=== PATIENT | male | born 1990 ===

== ENCOUNTER 2021-06-27 15:20 | Emergency (ER) | payer OTHER ==
[~2021-06-27] VITALS: Ht 175.3 cm; Wt 81.6 kg
[2021-06-27 15:38] VITALS: BP 138/99
[2021-06-27] MEDS ORDERED: CYCL-837 PO (17:08)
[2021-06-27] MEDS ORDERED: IBUP800T27 PO (17:08)
[2021-06-27] MEDS ORDERED: CEPH-509 PO (17:08)
== END 2021-06-27 17:39 | disposition home or self-care (01) ==
LOC: ER 15:20
DX: S22.31XA Fracture of one rib, right side, initial encounter for closed fracture (principal); S62.622A Displaced fracture of middle phalanx of right middle finger, initial encounter for closed fracture; Z79.1 Long term (current) use of non-steroidal anti-inflammatories (NSAID); Z79.899 Other long term (current) drug therapy; W18.39XA Other fall on same level, initial encounter; Y93.89 Activity, other specified; Y92.89 Other specified places as the place of occurrence of the external cause; Y99.8 Other external cause status
CPT/HCPCS: 29130; 71101; 73140